=== PATIENT | female | born 1975 | race Hispanic/Latino ===

== ENCOUNTER 2020-01-18 08:34 | Emergency (ER) | payer SELFPAY ==
[2020-01-18 09:06] VITALS: BP 148/86
--- NOTE | 2020-01-18 09:17 | Emergency Department Report ---
Chief Complaint: Dental/Oral Stated Complaint: TOOTHACHE/JAW PAIN Time Seen by Provider: 01/18/20 09:04 - HPI History of Present Illness: 44-year-old female presents to the emergency room for 1 day history of a tooth pain. Patient states that she had a broken tooth for over a year and now yesterday is been pain. Patient states that she is taking Tylenol which she reports has not helped. Patient has no past medical history takes no medications on a daily basis. Patient is afebrile normal vital signs. - Exam Vital Signs: Vital Signs 01/18/20 08:40 Temperature 99.4 F Pulse Rate 72 Respiratory 20 Rate Blood Pressure 148/86 O2 Sat by Pulse 98 Oximetry Physical Exam: Gen: alert oriented NAD HEENT: Patient has multiple teeth that has broken off to the gums. Patient has no discharge nonerythematous mild swelling. Cardic: regular rate and rhythm no murmurs appreciated Resp: Clear to auscultation bilateral no wheezing no rales or rhonchi. Abdomen: Soft nontender nondistended normal bowel sounds. Mini neuro: Normal finger to nose exam, frcc-rx-bbms normal, Romberg neg, strengh 4/5 all extrimities, Alert and oriented time 3 Crainal nerve II-IIX intact MSE screening note: Focused history and physical exam performed. Due to findings the following was ordered: 44-year-old female presents to the emergency room for 1 day history of a tooth pain. Patient states that she had a broken tooth for over a year and now yesterday is been pain. Patient states that she is taking Tylenol which she reports has not helped. Patient has no past medical history takes no medications on a daily basis. Patient is afebrile normal vital signs. Patient is referred to urgent care or dentist as this is not a life-threatening emergency. Patient can take [id number] ibuprofen for pain management. ED Disposition for MSE Clinical Impression: Tooth pain Disposition: DC-01 TO HOME OR SELFCARE Is pt being admited?: No Does the pt Need Aspirin: No Condition: Stable Instructions: Toothache (ED) Additional Instructions: You can take ibuprofen as needed for pain management. I recommend for you to follow-up at urgent care or dentist for further evaluation. Referrals: PRIMARY CARE, [Primary Care Provider] - 3-5 Days [facility] [Outside] - 3-5 Days [facility] [Outside] - 3-5 Days [facility] [Outside] - 3-5 Days [facility] [Provider Group] - 3-5 Days
== END 2020-01-18 09:20 | disposition home or self-care (01) ==
LOC: ED 08:34
DX: K08.89 Other specified disorders of teeth and supporting structures (principal)
CPT/HCPCS: 99282